=== PATIENT | male | born 2000 | race Hispanic/Latino ===

== ENCOUNTER 2021-11-15 15:48 | Emergency (ER) | payer SELFPAY ==
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
--- NOTE | 2021-11-15 16:58 | XRay Report ---
Left tibia and fibula 4 views INDICATION: Lower leg pain FINDINGS: Tibia and fibula appear intact. No periosteal reaction is seen. No soft tissue abnormality. IMPRESSION: No acute findings. Signer Name: Ruy Hale MD Signed: 11/15/2021 4:54 PM Workstation Name: [id number]
[2021-11-15] MEDS ORDERED: ACETAMINOPHEN 500 MG TAB PO ONE (17:00)
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
[2021-11-15 17:36] VITALS: BP 119/85
== END 2021-11-15 17:20 ==
LOC: ED 15:48
DX: S60.512A Abrasion of left hand, initial encounter (principal); M79.604 Pain in right leg; V87.7XXA Person injured in collision between other specified motor vehicles (traffic), initial encounter; Y93.89 Activity, other specified; Y92.89 Other specified places as the place of occurrence of the external cause; Y99.8 Other external cause status
CPT/HCPCS: 99283